=== PATIENT | male | born 1960 | race Caucasian/White ===

== ENCOUNTER → 2017-06-17 | Outpatient (CLI) | payer BC ==
[~2017-06-17] MED LIST: ATIVAN 0.50.5 MG/TAB PO; HCTZ12.5TAB PO; WELLBUTRIN XL300 M1 PO
== END ==
LOC: BHSO 14:55
DX: F41.1 Generalized anxiety disorder (principal)

== ENCOUNTER → 2017-07-22 | Outpatient (CLI) | payer BC | LOC: BHSO 14:55 | DX: F41.1 Generalized anxiety disorder (principal) ==

== ENCOUNTER → 2017-08-13 | Outpatient (CLI) | payer BC | LOC: BHSO 14:59 | DX: F41.1 Generalized anxiety disorder (principal) ==

== ENCOUNTER → 2017-11-04 | Outpatient (CLI) | payer BC | LOC: BHSO 08:20 | DX: F41.1 Generalized anxiety disorder (principal) ==

== ENCOUNTER → 2017-12-30 | Outpatient (CLI) | payer BC | LOC: BHSO 09:56 | DX: F41.1 Generalized anxiety disorder (principal) ==

== ENCOUNTER → 2018-06-10 | Outpatient (CLI) | payer BC | LOC: BHSO 13:59 | DX: F41.1 Generalized anxiety disorder (principal) ==

== ENCOUNTER → 2019-03-19 | Outpatient (CLI) | payer BC | LOC: BHSO 09:53 | DX: F41.1 Generalized anxiety disorder (principal) ==

== ENCOUNTER 2019-06-10 17:07 | Emergency (ER) | payer BC ==
[~2019-06-10] VITALS: Ht 177.8 cm; Wt 68.2 kg
[2019-06-10 17:40] LABS: COLLECTION METHOD CLEAN CATCH
[2019-06-10 17:49] LABS: BASO % 0.4 % (0.0-2.0); EOS # 0.1 (0.0-0.7); GRAN # 5.5 (1.4-6.5); GRAN % 68.5 % (42.2-75.2); HEMOGLOBIN 16.3 g/dl (13.5-18.0); LYMPH # 1.9 (1.2-3.4); LYMPH % 23.9 % (20.0-51.0); MEAN CELL VOLUME 95 fl (80.0-100.0); MEAN CORPUSCULAR HEMOGLOBIN 32 pg (27.0-31.0); MEAN CORPUSCULAR HGB CONC 33 g/dl (33.0-37.0); MEAN PLATELET VOLUME 8.8 fl (7.4-10.4); MONO # 0.5 (0.1-0.6); MONO % 5.9 % (1.7-9.3); PLATELET COUNT 247 K/mm3 (130-400); RED BLOOD COUNT 5.16 M/mm3 (4.20-5.60); REDCELL DISTRIBUTION WIDTH-CV 13.6 % (11.5-14.5)
[2019-06-10 17:51] LABS: MUCOUS Present /lpf; PH 6 (5-8); SQUAMOUS EPITHELIAL 0-2 /hpf; URINE APPEARANCE Clear; URINE BACTERIA None Seen /hpf; URINE BILIRUBIN Negative (NEGATIVE); URINE BLOOD Negative (NEGATIVE); URINE COLOR Yellow; URINE GLUCOSE Negative (NEGATIVE); URINE KETONE Trace (NEGATIVE); URINE LEUKOCYTE ESTERASE Negative (NEGATIVE); URINE NITRATE Negative (NEGATIVE); URINE PROTEIN(semi-quant) Negative (NEGATIVE); URINE UROBILINOGEN Negative (NEGATIVE)
[2019-06-10 17:56] LABS: ACETAMINOPHEN < 10 ug/mL (10-30); ALANINE AMINOTRANSFERASE 18 U/L (21-72); ALBUMIN 4.4 gm/dL (3.5-5.0); ALCOHOL(ethanol),MEDICAL < 10 mg/dL; ALKALINE PHOSPHATASE 54 U/L (50-136); ANION GAP 6 mmol/L (7-16); AST,SGOT 28 U/L (15-37); BILIRUBIN,TOTAL 0.6 mg/dL (0.0-1.0); BLOOD UREA NITROGEN 12 mg/dL (9-20); CALCIUM 9.3 mg/dL (8.4-10.2); CARBON DIOXIDE 31 mmol/L (22-30); CHLORIDE 103 mmol/L (98-107); CREATININE, serum 0.88 (0.66-1.25); GLUCOSE 96 mg/dL (74-106); SALICYLATE < 1.0 mg/dL; SODIUM 140 mmol/L (137-145); TOTAL PROTEIN 7.6 gm/dL (6.4-8.2)
[2019-06-10 18:45] LABS: TRICYCLIC ANTIDEPRESS URINE NEGATIVE
[2019-06-10 21:48] VITALS: BP 132/80; PULSE 88; TEMP 97
== END 2019-06-10 21:50 | disposition home or self-care (01) ==
LOC: COL.ER 17:07
PROVIDERS: Physician Assistant
DX: R45.851 Suicidal ideations (principal); F41.9 Anxiety disorder, unspecified; F32.9 Major depressive disorder, single episode, unspecified

== ENCOUNTER 2019-06-29 08:30 | Emergency (ER) | payer BC ==
[~2019-06-29] VITALS: Ht 177.8 cm; Wt 70.5 kg
[~2019-06-29 08:30] MED LIST changes: -LIDODERM 5% PATC1 EA TP; -MEDROL 4MG DOSPA4 MG PO; -NEURONTIN300 MG/CAP PO
[2019-06-29 08:48] VITALS: TEMP 97.8
[2019-06-29] MEDS ORDERED: MEDROL 4MG DOSPA4 MG PO (09:14)
[2019-06-29] MEDS ORDERED: NEURONTIN300 MG/CAP PO (09:14)
[2019-06-29] MEDS ORDERED: LIDODERM 5% PATC1 EA TP (09:15)
[2019-06-29 11:20] VITALS: BP 137/83; PULSE 68
== END 2019-06-29 11:20 | disposition home or self-care (01) ==
LOC: COL.ER 08:30
DX: M54.16 Radiculopathy, lumbar region (principal); I10 Essential (primary) hypertension; Z87.39 Personal history of other diseases of the musculoskeletal system and connective tissue
CPT/HCPCS: J1100; J1170; J1885; J2405

== ENCOUNTER → 2019-06-29 | Outpatient (CLI) | payer BC ==
[~2019-06-29] MED LIST changes: +LIDODERM 5% PATC1 EA TP; +MEDROL 4MG DOSPA4 MG PO; +NEURONTIN300 MG/CAP PO
== END ==
LOC: COL.RAD 11:24
DX: M51.16 Intervertebral disc disorders with radiculopathy, lumbar region (principal)

== ENCOUNTER → 2019-07-20 | Outpatient (CLI) | payer BC ==
[~2019-07-20] MED LIST changes: +LIDODERM 5% PATC1 EA TP; +MEDROL 4MG DOSPA4 MG PO; +NEURONTIN300 MG/CAP PO
== END ==
LOC: BHSO 09:48
DX: F33.1 Major depressive disorder, recurrent, moderate (principal)

== ENCOUNTER 2019-08-17 11:00 | Outpatient (RCR) | payer BC | END 2019-09-09 13:53 | disposition home or self-care (01) | LOC: WSC 11:00 | DX: M51.16 Intervertebral disc disorders with radiculopathy, lumbar region (principal) ==

== ENCOUNTER → 2019-09-07 | Outpatient (CLI) | payer BC | LOC: MHCPAIN 11:02 | DX: M53.3 Sacrococcygeal disorders, not elsewhere classified (principal); M47.27 Other spondylosis with radiculopathy, lumbosacral region; M96.1 Postlaminectomy syndrome, not elsewhere classified | CPT/HCPCS: G0463 ==

== ENCOUNTER → 2019-09-08 | Outpatient (CLI) | payer BC | LOC: BHSO 09:42 | DX: F33.1 Major depressive disorder, recurrent, moderate (principal) ==

== ENCOUNTER → 2019-11-15 | Outpatient (CLI) | payer BC | LOC: MHCPAIN 09:26 | DX: M54.5 Low back pain (principal); M53.3 Sacrococcygeal disorders, not elsewhere classified; M54.16 Radiculopathy, lumbar region; M96.1 Postlaminectomy syndrome, not elsewhere classified | CPT/HCPCS: G0463; J1100; Q9967 ==

== ENCOUNTER → 2019-12-01 | Outpatient (CLI) | payer BC | LOC: MHCPAIN 07:57 | DX: M47.817 Spondylosis without myelopathy or radiculopathy, lumbosacral region (principal); M53.3 Sacrococcygeal disorders, not elsewhere classified; M54.5 Low back pain; M96.1 Postlaminectomy syndrome, not elsewhere classified; G89.29 Other chronic pain | CPT/HCPCS: G0463 ==

== ENCOUNTER → 2019-12-02 | Outpatient (CLI) | payer BC | LOC: MHCPAIN 08:36 | DX: M54.5 Low back pain (principal); M53.3 Sacrococcygeal disorders, not elsewhere classified; M54.17 Radiculopathy, lumbosacral region; G89.29 Other chronic pain | CPT/HCPCS: J1100; Q9967 ==

== ENCOUNTER 2020-05-31 08:00 | Outpatient (RCR) | payer BC | END 2020-06-17 14:33 | disposition home or self-care (01) | LOC: WSC 08:00 | DX: M54.17 Radiculopathy, lumbosacral region (principal); M51.26 Other intervertebral disc displacement, lumbar region ==